=== PATIENT | male | born 1975 | race Caucasian/White ===

== ENCOUNTER → 2019-02-27 17:41 | Outpatient (CLI) | payer OTHER, SELFPAY ==
--- NOTE | 2019-02-27 17:44 | DI.MRI.S_ITS ---
PROCEDURE: MR LUMBAR SPINE WO CON INDICATIONS: LOW BACK PAIN TECHNIQUE: Noncontrast sagittal T1 spin echo and T2 fast echo, sagittal STIR, axial T1 and T2 fast spin echo through the lumbar spine. In cases with scoliosis, additional coronal T2 fast spin echo may be performed. COMPARISON: [facility], MR, L-SPINE WITHOUT CONTRAST, 10/19/2016, 15:06. FINDINGS: Image quality: Excellent. Alignment and Curvature: There is trace retrolisthesis of L2 on L3, L3 on L4, L4 on L5 and L5 on S1. Bone Marrow: Marrow is of normal overall signal. Minimal reactive endplate changes are present at L4-5 and L5-S1. No acute vertebral body compression fractures. Spinal Cord: Conus medullaris terminates at the L1 level. Visualized cord demonstrates normal signal and size. Paraspinous Soft Tissues: No paravertebral masses. Discs: Severe desiccation is present at L5-S1, mild to moderate throughout the remainder of the lumbar spine. L1-L2: No disc bulge, spinal stenosis or foraminal narrowing. Minimal epidural lipomatosis. No interval change. L2-L3: Mild disc bulge with mild spinal stenosis. Mild epidural lipomatosis is present. Minimal left foraminal narrowing. Minimal facet and ligamentum flavum hypertrophy. No interval change. L3-L4: Mild disc bulge with prominent epidural lipomatosis is present. Mild to moderate bilateral foraminal narrowing with facet and ligamentum flavum hypertrophy. Mild interval progression. L4-L5: Mild disc bulge with moderate spinal stenosis. Significant epidural lipomatosis is present. Mild to moderate left and mild right foraminal narrowing with facet and ligamentum flavum hypertrophy. Mild interval progression. L5-S1: Mild disc bulge with moderate spinal stenosis. There remain significant compromise of the left lateral recess by disc osteophyte complex. There is moderate left and mild right foraminal narrowing particularly prominent in the subarticular recess. Facet and ligamentum flavum hypertrophy present. No interval change. IMPRESSION: 1. Multilevel degenerative changes with areas of interval progression as above. 2. Multilevel spinal stenosis secondary to significant epidural lipomatosis with intervening effect of disc bulges, most notable at L4-5 and L5-S1. 3. Multilevel foraminal narrowing most prominent L5-S1 secondary to facet/ligamentum flavum arthropathy as follows posterior disc osteophyte complex. Dictated by: Isabel Schreiber M.D. on 03/02/2019 at 8:49 Approved by: Isabel Schreiber M.D. on 03/02/2019 at 9:28
== END ==
PROVIDERS: Visit Provider Physical Medicine & Rehabilitation Pain Medicine
DX: M54.5 Low back pain (principal); M47.816 Spondylosis without myelopathy or radiculopathy, lumbar region; M47.817 Spondylosis without myelopathy or radiculopathy, lumbosacral region; M48.061 Spinal stenosis, lumbar region without neurogenic claudication; M48.07 Spinal stenosis, lumbosacral region; E88.2 Lipomatosis, not elsewhere classified
CPT/HCPCS: 72148

== ENCOUNTER 2020-01-28 15:10 | Emergency (ER) | payer OTHER, SELFPAY ==
[2020-01-28 15:13] VITALS: BP 163/109; PULSE 106; RESP 16; TEMP 36.6; O2SAT 97; BMI 36.6
--- NOTE | 2020-01-28 15:57 | ED_ITS ---
HPI - General Adult General Chief complaint: Urogenital-Male Stated complaint: severe testicular pain Time Seen by Provider: 01/28/20 15:49 Source: patient Mode of arrival: Ambulatory Limitations: no limitations History of Present Illness HPI narrative: Patient is a 44-year-old male here for evaluation of right-sided testicular pain what he thinks is a lump on his right testicle. States that occurred a couple days ago. Yesterday he did take some ibuprofen were some supportive clothing which he states seemed to make his symptoms worse. He also thinks that his left testicle is more sore. No urinary symptoms. No vomiting. No abdominal pain. Has had epididymitis in the past. Is not concerned about any sexually transmitted diseases. Related Data Allergies Allergy/AdvReac Type Severity Reaction Status Date / Time Penicillins [PENICILLINS] Allergy Severe Anaphylaxis Unverified 01/28/20 15:18 Review of Systems Constitutional Constitutional: Denies fever(s) Cardiovascular Cardiovascular: Denies chest pain and Denies dyspnea Respiratory Respiratory: Denies dyspnea Gastrointestinal Gastrointestinal: Denies abdominal pain Genitourinary Genitourinary: Denies hematuria, Denies dysuria, Denies flank pain, Reports testicular mass, Reports testicular pain and Denies urinary frequency Musculoskeletal Musculoskeletal: Denies myalgias and Denies arthralgias Integumentary/Breasts Skin/Breast: Denies lesions and Denies rash Neurologic Neurologic: Denies behavioral changes Psychiatric Psychiatric: Denies behavioral changes Hematologic/Lymphatic Hematologic/Lymphatic: Denies easy bleeding and Denies easy bruising Patient History Medical History Epididymitis (Acute) Social History Smoking Status: Never smoker Smoking Status: Never smoker tobacco type: smokeless tobacco alcohol intake frequency: a few times a week Substance Use Type: does not use Exam Initial Vital Signs Initial Vital Signs: Vital Signs Temperature 98 F 01/28/20 15:13 Pulse Rate 106 H 01/28/20 15:13 Respiratory Rate 16 01/28/20 15:13 Blood Pressure 163/109 H 01/28/20 15:13 Pulse Oximetry 97 01/28/20 15:13 Const General: cooperative, comfortable and well developed Limitations: mental status not altered HENKS Head: normal to inspection and normocephalic Resp Effort & Inspection: normal respiratory effort GI Inspection: non-distended Palpation: soft External: circumcised Penis: normal penis Meatus: meatus normal Scrotum: scrotum normal Other: Tenderness to palpation along the right testicle. Has normal testicular lie. Positive cremasteric reflex. Skin Lesions: no lesions Rashes: no rashes Course Orders Ordered: ED Orders 01/28/20 15:58 US scrotum Stat Vital Signs Vital signs: Vital Signs - 8 hr 01/28/20 15:13 01/28/20 18:19 Temperature 98 F Pulse Rate 106 H 99 H Respiratory Rate 16 Blood Pressure 163/109 H 132/92 H Pulse Oximetry 97 96 Medical Decision Making Imaging Data testicular US: Radiologist's Impression: [address] [address] Ultrasound Report Signed Patient: Lai Montejo [facility]#: [id number] : 1975Acct:[id number] Age/Sex: 44 / MDate of Service: 01/28/20 Loc: ED Accession Number: [id number] Procedure: US scrotum Ordering Provider: José Antonio Block D.O. PROCEDURE: US SCROTUM INDICATIONS: RIGHT TESTICULAR MASS TECHNIQUE: Real-time scanning was performed of the scrotum and testicles, with image documentation. Color and pulse Doppler interrogation was performed of both testicles. COMPARISON: None. FINDINGS: Right: Testicle is normal in size at 3.3 x 2.5 x 4.1 cm, and homogenous in echotexture. Epididymis is normal in overall size and morphology. No hydrocele or varicoceles. Overlying scrotal skin is normal in thickness. Left: Testicle is normal in size at 2.8 x 2.5 x 3.7 cm, and homogeneous in echotexture. Epididymis is normal in overall size and morphology. No hydrocele or varicoceles. Overlying scrotal skin is normal in thickness. Doppler: Color and pulse Doppler demonstrate normal and symmetric arterial flow in both testicles. There is, however, hyperemia at the epididymal structures on the right. The epididymal tail is asymmetrically enlarged. IMPRESSION: Epididymitis without evidence of orchitis is found at the right epididymis. No hydrocele or varicocele is found. No testicular mass lesion suspected. Dictated by: Jimmie Salgado M.D. on 01/28/2020 at 17:22 Approved by: Jimmie Salgado M.D. on 01/28/2020 at 17:24 MDM Narrative Medical decision making narrative: Ultrasound is concerning for epididymitis. There is no mass noted. Patient is not concerned about any sexually transmitted infections. We can hold on antibiotics. Will use Motrin and ibuprofen and also supported clothing. Discussed this with the patient. He is given return precautions and follow-up instructions. He expressed understanding and agreement. Discharge Plan Departure Patient Disposition: Home Clinical Impression: Epididymitis Discharge Date/Time: 01/28/20 18:20 Instructions: DI for Epididymitis Activity Restrictions/Additional Instructions: You can continue to take Tylenol and/or ibuprofen. Ice the area as well as needed. Supportive clothing as needed. Return to the emergency department for any new or worsening symptoms
[2020-01-28 18:19] VITALS: BP 132/92; PULSE 99; O2SAT 96
== END 2020-01-28 18:20 | disposition home or self-care (01) ==
PROVIDERS: Emergency Provider Emergency Medicine
DX: N45.1 Epididymitis (principal)
CPT/HCPCS: 76870; 99281; 99283

== ENCOUNTER 2023-05-15 12:29 | Emergency (ER) | payer OTHER, SELFPAY ==
[2023-05-15 12:38] VITALS: BP 169/100; PULSE 90; RESP 15; TEMP 36.3; O2SAT 99; BMI 37.3
--- NOTE | 2023-05-15 12:41 | ED_ITS ---
HPI - Extremity Problem <Amando Villa PA-C - Last Filed: 05/15/23 16:45> General Chief complaint: Back Pain/Injury Stated complaint: L Leg pain/says going numb Time Seen by Provider: 05/15/23 12:40 Source: patient Mode of arrival: Ambulatory History of Present Illness HPI Narrative: This is a 47-year-old male with a history of chronic sciatica presents emergency department worsening sciatica like pain down his left lower extremity. Patient states that he woke up this morning with moderate to severe pain to his left lower extremity similar to the pain he experiences with his chronic sciatica. He reports some intermittent paresthesias but denies any complete numbness. Denies any lower back pain or injury to any area. No trauma. Patient denies any saddle paresthesia, urinary or bowel incontinence, fevers, abdominal pain, chest pain, or any other concerning signs or symptoms. He denies any decreased range of motion. Patient states that he gets routine steroid lumbar injections which helps relieve symptoms. He is actively moving managed by a pain specialist for this as well as his primary care provider. Related Data Previous Rx's Medication Instructions Recorded cyclobenzaprine 10 mg tablet 10 mg PO TID PRN muscle spasm 10 05/15/23 days #30 tabs Allergies Allergy/AdvReac Type Severity Reaction Status Date / Time Penicillins [PENICILLINS] Allergy Severe Anaphylaxis Verified 05/15/23 12:41 Review of Systems <Amando Villa PA-C - Last Filed: 05/15/23 16:45> Review of Systems Narrative: GENERAL: Denies chills, fatigue, malaise, fever, sweats. HEENT: Denies sinus pain, ear pain, sore throat, difficulty swallowing, dizziness. RESPIRATORY: Denies dyspnea, cough, wheezing, hemoptysis, sputum. CARDIOVASCULAR: Denies chest pain, palpitations, orthopnea, edema, GASTROINTESTINAL: Denies nausea, vomiting, abdominal pain, diarrhea, constipation, melena. : Denies dysuria, frequency, incontinence, hematuria, urinary retention. MUSCULOSKELETAL: Reports left lower extremity pain SKIN: Denies rash, skin lesions, or other NEUROLOGIC: Denies weakness, headache, numbness, change in speech, confusion, seizures, incoordination. PSYCHIATRIC: No concerning psychosocial issues. 12 point review of systems is negative except for those stated above Patient History <MIKO Perla Last Filed: 05/15/23 16:45> Medical History (Updated 05/15/23 @ 12:47 by Amando Villa PA-C) Epididymitis Social History Smoking Status: Never smoker Smoking Status: Never smoker tobacco type: smokeless tobacco alcohol intake frequency: a few times a week Substance Use Type: does not use Exam <Amando Villa PA-C - Last Filed: 05/15/23 16:45> Narrative Exam Narrative: GENERAL: Well-developed patient, in mild distress. HEAD: Atraumatic. Normocephalic. EYES: Pupils equal round and reactive. Extraocular motions intact. No scleral icterus. No injection or drainage. ENT: Nose without bleeding, purulent drainage. Throat without erythema, tonsillar hypertrophy or exudate. Airway patent. NECK: Trachea midline. Non tender EXTREMITIES: No unilateral edema. Neurovascularly intact throughout. No significant tenderness to palpation through the or popliteal area. BACK: Nontender without deformity or crepitance. No flank tenderness. NEURO: AOx3. SKIN: No rash or erythema of visible areas Initial Vital Signs Initial Vital Signs: Vital Signs Temperature 97.3 F L 05/15/23 12:38 Pulse Rate 90 05/15/23 12:38 Respiratory Rate 15 05/15/23 12:38 Blood Pressure 169/100 H 05/15/23 12:38 Pulse Oximetry 99 05/15/23 12:38 Oxygen Delivery Method Room Air 05/15/23 12:38 <Olegario Gardner DO - Last Filed: 05/21/23 03:55> Initial Vital Signs Initial Vital Signs: Vital Signs Temperature 97.3 F L 05/15/23 12:38 Pulse Rate 90 05/15/23 12:38 Respiratory Rate 15 05/15/23 12:38 Blood Pressure 169/100 H 05/15/23 12:38 Pulse Oximetry 99 05/15/23 12:38 Oxygen Delivery Method Room Air 05/15/23 12:38 Course <Amando Villa PA-C - Last Filed: 05/15/23 16:45> Orders Ordered: Discontinued Medications Ketorolac Tromethamine (Ketorolac 30 Mg/Ml Vial) 15 mg IM NOW ONE Stop: 05/15/23 12:41 Last Admin: 05/15/23 12:44 Dose: 15 mg Documented By: ALEX Vital Signs Vital signs: Vital Signs - 8 hr 05/15/23 12:38 Temperature 97.3 F L Pulse Rate 90 Respiratory Rate 15 Blood Pressure 169/100 H Pulse Oximetry 99 Oxygen Delivery Method Room Air <Olegario Gardner DO - Last Filed: 05/21/23 03:55> Orders Ordered: Discontinued Medications Ketorolac Tromethamine (Ketorolac 30 Mg/Ml Vial) 15 mg IM NOW ONE Stop: 05/15/23 12:41 Last Admin: 05/15/23 12:44 Dose: 15 mg Documented By: ALEX Vital Signs Vital signs: Vital Signs - 8 hr 05/15/23 12:38 Temperature 97.3 F L Pulse Rate 90 Respiratory Rate 15 Blood Pressure 169/100 H Pulse Oximetry 99 Oxygen Delivery Method Room Air MDM - Extremity (Nontraumatic) <Amando Villa PA-C - Last Filed: 05/15/23 16:45> MDM Narrative Medical decision making narrative: MDM * differential diagnosis includes but not limited to DVT, sciatica, cauda equina syndrome, lumbosacral strain * Prior records reviewed: Patient has not been here for similar complaints in the past. * My lab interpretation: None obtained * My imgaing interpretation: None obtained * Clinical Decision Rules/Scores evaluated: None * Independent discussions with: None ED Course: This is a 47-year-old male presents emergency department due to suspected flare-up of his chronic sciatica. He was not presenting with any concerning symptoms such as saddle paresthesia, urinary bowel incontinence, that was suggest any kind of cauda equina syndrome. There was no unilateral swelling or significant tenderness of the popliteal space concerning for a DVT. He was neurovascularly intact throughout. Patient will be treated with IM Toradol here in the emergency department and a prescription for muscle relaxants. Recommended he follow up with his chronic pain specialist as well as primary care provider for long-term management. Shared Decision Making: Discussed plan with patient who is comfortable with the plan. Social Considerations: None Disposition: Discharged to home Discharge Plan Departure Patient Disposition: Home Clinical Impression: Sciatica Instructions: DI for Sciatica Activity Restrictions/Additional Instructions: Thank you for coming to the [facility] Emergency Department today. As we discussed I believe there is a very low likelihood that you have any kind of ?blood clot? in your left lower extremity. You are also not presenting with any symptoms concerning for any kind of central spinal cord injury. I suspect this is a flare-up of your chronic sciatic. The Toradol giving she was a should help. May also take these muscle relaxants as they may help with the pain as well. I recommend he follow up with your chronic pain specialist as well as primary care provider for long-term management. I sent your medications to [facility] in [place]. I hope you feel better soon. Prescriptions: New cyclobenzaprine 10 mg tablet 10 mg PO TID PRN (Reason: muscle spasm) 10 Days Qty: 30 0RF Stand Alone Forms: Patient Portal/API <Olegario Gardner DO - Last Filed: 05/21/23 03:55> Cosign ED Attending Stephaneature Attestation: I was immediately available in the department for consultation. Documentation has been reviewed. I agree with assessment and plan.
[2023-05-15] MEDS: KETOROLAC 30 MG/ML VIAL 15 MG IM (12:44)
== END 2023-05-15 12:54 | disposition home or self-care (01) ==
PROVIDERS: Emergency Provider Physician Assistant Medical
DX: M54.32 Sciatica, left side (principal)
CPT/HCPCS: 96372; 99283; J1885

== ENCOUNTER 2024-01-19 11:58 | Emergency (ER) | payer OTHER, SELFPAY ==
[2024-01-19 12:18] VITALS: BP 166/101; PULSE 102; RESP 20; TEMP 36.6; O2SAT 98; BMI 41.5
--- NOTE | 2024-01-19 13:08 | PC.NURSE ---
pt has very red area around insect bite that measures 8cm x 6cm and a diffuse redness around that that measures 12cm x 20cm. pt skin marked with skin marker to visualize any increase in size. pt states he was bite by tick 7 days ago and he removed the bug with pliers. then he has washed out the area with iodine, used neosporin, and topical benadryl on the wound since then. last night he noticed the increase in redness and tried to debride the wound himself at home. redness is still worse today prompting a trip to the ER. with patient at bedside.
--- NOTE | 2024-01-19 14:14 | ED.SKABFB ---
HPI - Skin/Abscess/Foreign Bdy General Chief complaint: Skin/Abscess/Foreign Body Stated complaint: bit by tick wk ago has rash thats worsening Time Seen by Provider: 01/19/24 12:46 Source: patient Mode of arrival: Family Vehicle Limitations: no limitations History of Present Illness HPI narrative: 48-year-old gentleman with a history of hypertension who was bit by a tick about a week ago. He found it on his abdomen within 2-3 hours of coming in from a walk and removed it without difficulty. Over the last couple of days he has had increasing erythema around the bite area and last night did a bit more digging to make sure that there were no tick parts still imbedded in the center portion of the wound. This morning he noticed significantly expanding area of erythema over his abdominal wall. He has not having any fevers or chills. He and his did some research and are obviously concerned about Lyme disease. He comes in for further evaluation Related Data Previous Rx's Medication Instructions Recorded doxycycline hyclate 100 mg capsule 100 mg PO BID #20 caps 01/19/24 Allergies Allergy/AdvReac Type Severity Reaction Status Date / Time Penicillins [PENICILLINS] Allergy Severe Anaphylaxis Verified 01/19/24 12:27 Review of Systems Review of Systems Narrative: Pertinent positive and negative findings as per HPI Patient History Medical History Epididymitis Social History Smoking Status: Never smoker Smoking Status: Never smoker tobacco type: smokeless tobacco alcohol intake frequency: a few times a week Substance Use Type: does not use Exam Initial Vital Signs Initial Vital Signs: Vital Signs Temperature 97.9 F 01/19/24 12:18 Pulse Rate 102 H 01/19/24 12:18 Respiratory Rate 20 01/19/24 12:18 Blood Pressure 166/101 H 01/19/24 12:18 Pulse Oximetry 98 01/19/24 12:18 Oxygen Delivery Method Room Air 01/19/24 12:18 General: Anxious but in no acute distress. Able to give a complete and coherent history. Well-nourished well-developed espiratory: Lungs are clear to auscultation, no wheezing no rales no rhonchi. Full and symmetrical air movement Cardiac: Regular rate and rhythm no murmurs no bruits Abdomen: Soft, he has an area of cellulitis over the left anterior abdominal wall. Central portion is approximately 5 mm in size and appears to be a superficial abrasion with no retained tick parts. There is a 5 cm in diameter area of cellulitis with deep red erythema but no abscess development an outside that there is an approximately 15 cm area of expanding erythema. Neurologic: Grossly neurologically intact with no obvious asymmetries or abnormalities Extremities: No trauma, well perfused Psych: Cooperative, appropriate insight and affect Course Vital Signs Vital signs: Vital Signs - 8 hr 01/19/24 12:18 Temperature 97.9 F Pulse Rate 102 H Respiratory Rate 20 Blood Pressure 166/101 H Pulse Oximetry 98 Oxygen Delivery Method Room Air MDM - Skin/Abscess/Foreign Bdy MDM Narrative Medical decision making narrative: CC: Tick bite, abdominal wall cellulitis Complicating co-morbidities: Hypertension Data collected from: patient, Differential considered: Cellulitis, retained tick pieces, Lyme disease is within the differential Exam documented above, pertinent findings include: Abdominal erythema consistent with cellulitis likely expanding as he was trying to more thoroughly clean the wound last night. There is no evidence that there any retained parts of the tick in the center portion of the wound. Treatments: 100 mg of doxycycline Discussion: 48-year-old gentleman with a tick bite that now is approximately 5-day-old with surrounding superficial cellulitis that is far more consistent with simply skin disruption rather than anything more sinister related to the tick itself. Fortunately doxycycline for cellulitis is going to be absolutely appropriate, discussed using doxycycline as a preventive measure for Lyme disease as well. We briefly discussed his elevated blood pressure and I suggested that he make sure that he is checking blood pressures at home on a regular basis so that blood pressure is appropriately controlled. Questions are answered and he is safe for discharge Discharge Plan Departure Patient Disposition: Home Clinical Impression: Cellulitis Qualifiers: Site of cellulitis: trunk Site of cellulitis of trunk: abdominal wall Qualified Code(s): L03.311 - Cellulitis of abdominal wall Tick bite of abdomen Qualifiers: Encounter type: initial encounter Qualified Code(s): S30.861A - Insect bite (nonvenomous) of abdominal wall, initial encounter Instructions: DI for Cellulitis -- Adult Activity Restrictions/Additional Instructions: Thank you for coming in today You definitely have a cellulitis. It does not look like there is an abscess underneath it. I suspect it is from the physical portion of the tick bite and likely exacerbated a bit while you were making sure that there were no tick parts left with your exploration last night. With tics, clearly there is a concern for Lyme disease. That is somewhat uncommon in [facility] but still a possibility. Fortunately, the treatment for both a simple cellulitis as well as tick exposure and preventing Lyme disease is the same. I am going to place you on 10 days doxycycline 100 mg twice a day. Please make sure you do complete all 10 days. I suspect that you will notice that the redness does expand a bit beyond the lines that you have already drawn in the 1st 24 hours. By Saturday everything should definitely be improving. Your blood pressure was elevated in the emergency department. I would recommend that you make sure that you are taking your blood pressure medications as prescribed and checking your blood pressure 2 or 3 hours after you taking your blood pressure medications when you are not stressed. It is important to know that your blood pressure is being appropriately controlled to prevent long-term complications If you find that you are getting worse or develop any new symptoms, please feel free to return to the emergency department for further evaluation. Prescriptions: New doxycycline hyclate 100 mg capsule 100 mg PO BID Qty: 20 0RF Stand Alone Forms: Patient Portal/API
[2024-01-19 14:31] VITALS: BP 170/106; PULSE 97; RESP 16; O2SAT 96
[2024-01-19] MEDS: DOXYCYCLINE HYCLATE 100 MG TABLET PO (14:34)
== END 2024-01-19 14:38 | disposition home or self-care (01) ==
PROVIDERS: Emergency Provider Emergency Medicine
DX: S30.861A Insect bite (nonvenomous) of abdominal wall, initial encounter (principal); L03.311 Cellulitis of abdominal wall; W57.XXXA Bitten or stung by nonvenomous insect and other nonvenomous arthropods, initial encounter
CPT/HCPCS: 99283

== ENCOUNTER → 2025-03-06 15:40 | Outpatient (CLI) | payer OTHER, SELFPAY ==
--- NOTE | 2025-03-06 15:42 | DI.MRI.S_ITS ---
PROCEDURE: MR KNEE RT WO CON INDICATIONS: right knee pain TECHNIQUE: Noncontrast sagittal PD fast spin echo and T2 fast spin echo with fat saturation, sagittal 3-D FLASH with fat saturation; coronal T1 spin echo and PD fast spin echo with fat saturation, and axial PD fast spin echo with fat saturation through the knee. COMPARISON: [facility], MR, KNEE WITHOUT CONTRAST, 03/11/2018, 18:02. FINDINGS: Image quality: Excellent. Menisci: There is oblique tear involving posterior horn of medial meniscus extending to inferior articulating surface. The lateral meniscus is intact. Cruciate ligaments: The anterior cruciate ligament is mildly thickened with subtle intrasubstance T2 hyperintense signal. The posterior cruciate ligament is intact. Medial structures: The medial collateral ligament appears thickened with intrasubstance T2 hyperintense signal. Visualized portions of the pes anserinus tendons appear normal. No abnormal bursal fluid. Lateral structures: The lateral collateral ligament is thickened at its femoral insertion. The long and short heads of the biceps femoris tendon appear intact. The popliteus tendon appears normal. Iliotibial band appears normal. Anterior structures: The quadriceps and patellar tendons appear intact. Patellar alignment is normal. Bones and cartilage: No bone marrow contusions or fractures. 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 Joint space: There is small knee joint fluid. No Foster's cyst. Normal appearing synovial plicae are incidentally noted. IMPRESSION: 1. Horizontal oblique tear involving posterior horn of medial meniscus extending to inferior articulating surface. The lateral meniscus is intact. 2. Low-grade ACL sprain. The PCL is intact. 3. Low to moderate grade partial-thickness tear involving medial collateral ligament. Low-grade partial-thickness tear involving proximal lateral collateral ligament. 4. 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 No fracture or dislocation. Small joint effusion, no loose bodies. Dictated by: Amandeep Wing M.D. on 03/08/2025 at 9:04 Approved by: Amandeep Wing M.D. on 03/08/2025 at 9:09
== END ==
LOC: MRI 15:41
PROVIDERS: PCP Family Medicine; Referring Provider Family Medicine; Visit Provider Family Medicine
DX: S83.241A Other tear of medial meniscus, current injury, right knee, initial encounter (principal); S83.511A Sprain of anterior cruciate ligament of right knee, initial encounter; S83.411A Sprain of medial collateral ligament of right knee, initial encounter; S83.421A Sprain of lateral collateral ligament of right knee, initial encounter; M17.11 Unilateral primary osteoarthritis, right knee; M22.41 Chondromalacia patellae, right knee; M25.561 Pain in right knee; M25.461 Effusion, right knee
CPT/HCPCS: 73721

== ENCOUNTER → 2025-08-31 17:02 | Outpatient (CLI) | payer OTHER, SELFPAY ==
--- NOTE | 2025-08-31 17:04 | DI.MRI.S_ITS ---
PROCEDURE: MR KNEE LT WO CON INDICATIONS: LT KNEE PAIN TECHNIQUE: Noncontrast sagittal PD fast spin echo and T2 fast spin echo with fat saturation, sagittal 3-D FLASH with fat saturation; coronal T1 spin echo and PD fast spin echo with fat saturation, and axial PD fast spin echo with fat saturation through the knee. COMPARISON: [facility], MR, MR KNEE RT WO CON, 03/06/2025, 16:01. FINDINGS: Image quality: Markedly limited exam due to patient motion artifacts with numerous repeated sequences. Menisci: Despite the limitations there does appear to be abnormal signal in the medial meniscus anterior and posterior horns and mid body suspicious for complex tear with some maceration/degeneration and truncation of the free edges. Mild posterior meniscocapsular separation medial and lateral. The lateral meniscus demonstrates mild increased signal in the posterior horn possible oblique tear versus internal globular degenerative changes. Anterior horn is normal. On the coronal images the medial meniscus is markedly displaced medially. Cruciate ligaments: Mild increased T2 weighted signal in the mid and distal anterior cruciate ligament but with intact fibers without complete tear or retraction mild injury/strain. Posterior cruciate ligament is normal. Medial structures: Probable grade 2 injury medial collateral ligament with increased T2 weighted signal/edema within and surrounding the MCL. Distal semimembranosus tendon is normal. Mild increased medial bursal fluid and mild soft tissue edema surrounding the distal pes anserinus tendons. Lateral structures: Increased T2 weighted signal and thinning of the lateral collateral ligament suggests injury/strain without gross complete tear within the limitations of the exam. Popliteus tendon appears normal. Mild increased lateral bursal fluid. The long and short heads of the biceps femoris tendon appear intact. Iliotibial band appears intact. Anterior structures: Suspicion of patella baja configuration. Nonspecific increased T2 weighted signal/edema anterior to the patella and patella ligament. Otherwise quadriceps tendon and patellar ligament appear intact. Bones and cartilage: Heterogeneous signal and irregularity with diffuse cartilage thinning in the medial compartment related to degenerative change with small osteophytes. Mild thinning in the lateral compartment patellofemoral cartilage is normal without focal cartilage defect. No MR evidence of fracture line or significant bone edema. No dislocation. Joint space: [id number]-[id number] knee joint effusion. No significant popliteal cyst. IMPRESSION: Complex tear of the medial meniscus as discussed above. Degenerative changes in the medial compartment as discussed above. Patella baja configuration. Knee joint effusion. Other findings as above. Limited exam. Dictated by: Stewart Gomez M.D. on 09/02/2025 at 19:37 Approved by: Stewart Gomez M.D. on 09/02/2025 at 19:45
== END ==
PROVIDERS: PCP Family Medicine; Referring Provider Family Medicine; Visit Provider Family Medicine
DX: S83.232A Complex tear of medial meniscus, current injury, left knee, initial encounter (principal); M17.12 Unilateral primary osteoarthritis, left knee; M25.462 Effusion, left knee
CPT/HCPCS: 73721

== ENCOUNTER 2025-11-07 10:25 | Emergency (ER) | payer OTHER, SELFPAY ==
[2025-11-07 10:46] VITALS: BP 177/113; PULSE 79; RESP 17; TEMP 36.9; O2SAT 97; BMI 40.0
--- NOTE | 2025-11-07 11:19 | ED_ITS ---
HPI - Ear Problem General Chief complaint: Ear Stated complaint: Bleeding out of ear Time Seen by Provider: 11/07/25 11:18 Source: patient Mode of arrival: Family Vehicle History of Present Illness HPI Narrative: Patient is a 49-year-old male who presents today with left ear injury. He reports that last night while he was cleaning his ear with a Q-tip something fell off the shelf he went to grab it at the same time job the Q-tip into his ear. He says like the QT came out completely but had some bleeding in his ear. He got really dizzy at the moment but did not pass out. He is not on any antiplatelet or anticoagulation medications Related Data Previous Rx's ?Medication ?Instructions ?Recorded doxycycline hyclate 100 mg capsule 100 mg PO BID #20 c aps 01/19/24 Allergies Allergy/AdvReac Type Severity Reaction Status Date / Time Penicillins (PENICILLINS) Allergy Severe Anaphylaxis Verified 11/07/25 10:45 Patient History Medical History Epididymitis Social History Smoking Status: Former smoker Smoking Status: Former smoker tobacco type: smokeless tobacco alcohol intake frequency: a few times a week Exam Initial Vital Signs Initial Vital Signs: Vital Signs Temperature 98.4 F 11/07/25 10:46 Pulse Rate 79 11/07/25 10:46 Respiratory Rate 17 11/07/25 10:46 Blood Pressure 177/113 H 11/07/25 10:46 Pulse Oximetry 97 11/07/25 10:46 Oxygen Delivery Method Room Air 11/07/25 10:46 GENERAL: Well-appearing, well-nourished and in no acute distress. Right ear external normal tympanic membrane visualized nonerythematous Left ear external normal there is blood in the canal tympanic membrane is not visualized CARDIOVASCULAR: peripheral pulses in tact, cap refill <2 sec RESPIRATORY: No respiratory distress, speaks in full sentences without difficulty EXTREMITIES: Normal range of motion, no clubbing or edema. Neurovascularly intact NEUROLOGICAL: Cranial nerves II through XII grossly intact. Normal gait and speech. SKIN: Warm, dry, no petechiae, no rashes or lesions. Course Vital Signs Vital signs: Vital Signs - 8 hr 11/07/25 10:46 Temperature 98.4 F Pulse Rate 79 Respiratory Rate 17 Blood Pressure 177/113 H Pulse Oximetry 97 Oxygen Delivery Method Room Air Medical Decision Making MDM Narrative Medical decision making narrative: Patient 49-year-old male presents today with bleeding out of left ear from trauma and Q-tip. Ruptured tympanic membrane from trauma. Discharge Plan Departure Patient Disposition: Home Clinical Impression: Rupture of left tympanic membrane Instructions: Ruptured Eardrum Activity Restrictions/Additional Instructions: *You have been diagnosed with ruptured tympanic membrane *What to do: Do not put anything in your ear. May shower and bathe normally avoid swimming. *Continue to take medications as directed *Follow up with your primary care provider in 2-3 days or call [phone] *Return to ER if you should have increasing bleeding or any new, worsening or concerning symptoms Prescriptions: No Action doxycycline hyclate 100 mg capsule 100 mg PO BID Qty: 20 0RF Referrals: Rodger Milner DO [Primary Care Provider, Family Practice] Stand Alone Forms: Patient Portal/API
== END 2025-11-07 11:41 | disposition home or self-care (01) ==
PROVIDERS: Emergency Provider Emergency Medicine; PCP Family Medicine
DX: H72.02 Central perforation of tympanic membrane, left ear (principal); W22.8XXA Striking against or struck by other objects, initial encounter
CPT/HCPCS: 99281